=== PATIENT | male | born 1990 | race Two or more races ===

== ENCOUNTER 2020-01-19 20:37 | Emergency (ER) | payer OTHER ==
[~2020-01-19] VITALS: Ht 165.1 cm; Wt 64.9 kg
[2020-01-19 20:42] VITALS: BP 139/91
--- NOTE | 2020-01-19 20:56 | NUR ---
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 PATIENT STATES THAT HE WAS WATCHING TELEVISION WITH HIS FRIEND AT THE TIME OF PALPITATIONS. PATIENT DENIES CHEST PAIN. PATIENT STATES THAT HE IS HAVING NUMBNESS ON THE LEFT SIDE OF HIS ARM AND HIS MOUTH. 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 BREATHING EVENLY AND UNLABORED ON ROOM AIR. ALERT AND ORIENTED x4.
--- NOTE | 2020-01-19 21:14 | NUR ---
Patient discharged to home in stable condition. Written and verbal after care instructions given. Patient verbalizes understanding of instruction.
== END 2020-01-19 21:16 | disposition home or self-care (01) ==
LOC: ER 20:41
DX: R00.2 Palpitations (principal); Z98.890 Other specified postprocedural states; Z60.2 Problems related to living alone; Z86.711 Personal history of pulmonary embolism; Z86.73 Personal history of transient ischemic attack (TIA), and cerebral infarction without residual deficits